=== PATIENT | female | born 1975 | race Caucasian/White ===

== ENCOUNTER 2017-06-27 11:11 | Observation (INO) | payer BC ==
[2017-06-27] MEDS ORDERED: NORMAL SALINE 250 ML IV PRN ×2 (11:37)
--- NOTE | 2017-06-27 11:46 | ER Document Report ---
ED General - General Chief Complaint: Abnormal Lab Results Stated Complaint: COUGH Time Seen by Provider: 06/27/17 11:37 Mode of Arrival: Ambulatory Information source: Patient Notes: 42 yr old female who has had heavy vaginal bleeding for over 2 months , pt seen by obgyn started on provera, notes bleeding has improved, TRAVEL OUTSIDE OF THE [place] IN LAST 30 DAYS: No - HPI Onset: Other - 2 months duration Onset/Duration: Persistent Quality of pain: No pain Severity: Mild Pain Level: 1 Associated symptoms: Weakness Exacerbated by: Denies Relieved by: Denies Similar symptoms previously: Yes Recently seen / treated by doctor: Yes - Related Data Allergies/Adverse Reactions: No Known Allergies Allergy (Verified 06/27/17 11:12) Past Medical History - Social History Smoking Status: Never Smoker Cigarette use (# per day): No Chew tobacco use (# tins/day): No Smoking Education Provided: No Frequency of alcohol use: Social Drug Abuse: None Family History: Reviewed & Not Pertinent Patient has suicidal ideation: No Patient has homicidal ideation: No Neurological Medical History: Denies: Hx Cerebrovascular Accident, Hx Migraine, Hx Seizures Renal/ Medical History: Denies: Hx Peritoneal Dialysis Psychiatric Medical History: Denies: Hx Anxiety Past Surgical History: Reports: Hx Tubal Ligation Review of Systems - Review of Systems Notes: REVIEW OF SYSTEMS: CONSTITUTIONAL : Denies fever, chills, or sweats. Denies recent illness. EENT: Denies eye, ear, throat, or mouth pain or symptoms. Denies nasal or sinus congestion or discharge. Denies throat, tongue, or mouth swelling or difficulty swallowing. CARDIOVASCULAR: Denies chest pain. Denies palpitations or racing or irregular heart beat. Denies ankle edema. RESPIRATORY: Denies cough, cold, or chest congestion. Denies shortness of breath, difficulty breathing, or wheezing. GASTROINTESTINAL: Denies abdominal pain or distention. Denies nausea, vomiting , or diarrhea. Denies blood in vomitus, stools, or per rectum. Denies black, tarry stools. Denies constipation. GENITOURINARY: Denies difficulty urinating, painful urination, burning, frequency, blood in urine, or discharge. FEMALE GENITOURINARY: admits ot vaginal bleeding MUSCULOSKELETAL: Denies back or neck pain or stiffness. Denies joint pain or swelling. SKIN: Denies rash, lesions or sores. HEMATOLOGIC : Denies easy bruising or bleeding. LYMPHATIC: Denies swollen, enlarged glands. NEUROLOGICAL: Denies confusion or altered mental status. Denies passing out or loss of consciousness. Denies dizziness or lightheadedness. Denies headache. Denies weakness or paralysis or loss of use of either side. Denies problems with gait or speech. Denies sensory loss, numbness, or tingling. Denies seizures. PSYCHIATRIC: Denies anxiety or stress. Denies depression, suicidal ideation, or homicidal ideation. ALL OTHER SYSTEMS REVIEWED AND NEGATIVE. PHYSICAL EXAMINATION: GENERAL: Well-appearing, well-nourished and in no acute distress. HEAD: Atraumatic, normocephalic. EYES: Pupils equal round and reactive to light, extraocular movements intact, conjunctiva are normal. ENT: Nares patent, oropharynx clear without exudates. Moist mucous membranes. NECK: Normal range of motion, supple without lymphadenopathy LUNGS: Breath sounds clear to auscultation bilaterally and equal. No wheezes rales or rhonchi. HEART: Regular rate and rhythm without murmurs ABDOMEN: Soft, nontender, nondistended abdomen. No guarding, no rebound. No masses appreciated. Female : deferred Musculoskeletal: Normal range of motion, no pitting or edema. No cyanosis. NEUROLOGICAL: Cranial nerves grossly intact. Normal speech, normal gait. Normal sensory, motor exams PSYCH: Normal mood, normal affect. SKIN: Warm, Dry, normal turgor, no rashes or lesions noted. Dictation was performed using [employer] voice recognition software Physical Exam - Vital signs Vitals: Temp Pulse Resp BP Pulse Ox 98.7 F 104 H 18 142/84 H 100 06/27/17 11:17 06/27/17 11:17 06/27/17 11:17 06/27/17 11:17 06/27/17 11:17 Course - Re-evaluation Re-evalutation: 06/27/17 11:[address] Nash, patient will require more than 2 units of transfusion if her hemoglobin is 5 as noted in the office, she will admit to her service - Vital Signs Vital signs: Temp Pulse Resp BP Pulse Ox 98.7 F 104 H 18 142/84 H 100 06/27/17 11:17 06/27/17 11:17 06/27/17 11:17 06/27/17 11:17 06/27/17 11:17 - Laboratory Result Diagrams: 06/27/17 11:39 06/27/17 11:39 Laboratory results interpreted by me: 06/27/17 06/27/17 11:39 11:39 WBC 11.0 H RBC 3.14 L Hgb 6.9 L Hct 22.1 L MCV 71 L MCH 22.1 L MCHC 31.3 L RDW 16.8 H Seg Neutrophils % 79.1 H Absolute Neutrophils 8.7 H Crossmatch See Detail Critical Care Note - Critical Care Note Total time excluding time spent on procedures (mins): 37 Comments: 37 minutes of critical care time spent in direct contact evaluating and reevaluating the patient, treating symptoms, reviewing labs and studies and speaking with family and consultants excluding any procedures Discharge - Discharge Clinical Impression: Vaginal bleeding Anemia Qualifiers: Iron deficiency anemia type: chronic blood loss Qualified Code(s): D50.0 - Iron deficiency anemia secondary to blood loss (chronic) Condition: Stable Disposition: ADMITTED OBSERVATION Admitting Provider: [facility] Admitted: Post
[2017-06-27 11:57] LABS: ABSOLUTE EOSINOPHILS # (AUTO) 0.1 10^3/uL (0.0-0.6); ABSOLUTE LYMPHOCYTES (AUTO) 1.6 10^3/uL (0.5-4.7); ABSOLUTE MONOCYTES (AUTO) 0.5 10^3/uL (0.1-1.4); ABSOLUTE NEUT (AUTO) 8.7 10^3/uL (1.7-8.2); BASOPHILS % (AUTO) 0.4 % (0-2); EOSINOPHILS % (AUTO) 1.2 % (0-6); HEMATOCRIT 22.1 % (36.0-47.0); LYMPHOCYTES % (AUTO) 14.9 % (13-45); MEAN CORPUSCULAR HEMOGLOBIN 22.1 pg (27.0-33.4); MEAN CORPUSCULAR HGB CONC 31.3 g/dL (32.0-36.0); MEAN CORPUSCULAR VOLUME 71 fl (80-97); MONOCYTES % (AUTO) 4.4 % (3-13); PLATELET COUNT 383 10^3/uL (150-450); RED BLOOD COUNT 3.14 10^6/uL (3.72-5.28); RED CELL DISTRIBUTION WIDTH 16.8 % (11.5-14.0); SEGMENTED NEUTROPHILS % (AUTO) 79.1 % (42-78); TOTAL CELLS COUNTED % (AUTO) 100 %
[2017-06-27 12:01] LABS: HEMOGLOBIN 6.9 g/dL (12.0-15.5)
[2017-06-27 12:23] LABS: ALANINE AMINOTRANSFERASE 29 U/L (9-52); ALKALINE PHOSPHATASE 64 U/L (38-126); ANION GAP 10 (5-19); ASPARTATE AMINO TRANSFERASE 21 U/L (14-36); BILIRUBIN,DIRECT 0.2 mg/dL (0.0-0.4); BILIRUBIN,TOTAL 0.2 mg/dL (0.2-1.3); BLOOD UREA NITROGEN 11 mg/dL (7-20); CALCIUM 9.4 mg/dL (8.4-10.2); CARBON DIOXIDE 25 mmol/L (22-30); CHLORIDE 104 mmol/L (98-107); GLUCOSE 101 mg/dL (75-110); POTASSIUM 4.4 mmol/L (3.6-5.0); SODIUM 138.9 mmol/L (137-145); TOTAL PROTEIN 6.8 g/dL (6.3-8.2)
[2017-06-27 13:28] LABS: ABSOLUTE RETICS # 0.113 10^6/uL (0.028-0.122); RETICULOCYTE COUNT (AUTO) 3.54 % (0.66-2.85)
[2017-06-27 14:26] LABS: FERRITIN 5.65 ng/mL (6.2-137.0)
[2017-06-27 14:27] LABS: IRON(TIBC) < 10.1 ug/dL (37-170)
[2017-06-28 01:58] LABS: HEMATOCRIT 24.5 % (36.0-47.0); MEAN CORPUSCULAR HEMOGLOBIN 23.4 pg (27.0-33.4); MEAN CORPUSCULAR HGB CONC 31.9 g/dL (32.0-36.0); MEAN CORPUSCULAR VOLUME 73 fl (80-97); PLATELET COUNT 288 10^3/uL (150-450); RED BLOOD COUNT 3.34 10^6/uL (3.72-5.28); RED CELL DISTRIBUTION WIDTH 19.3 % (11.5-14.0); WHITE BLOOD COUNT 11.4 10^3/uL (4.0-10.5)
[2017-06-28 02:02] LABS: HEMOGLOBIN 7.8 g/dL (12.0-15.5)
[2017-06-28] MEDS ORDERED: FUROSEMIDE INJ/PF 20 MG/2 ML SDV IV ONE (02:37)
[2017-06-28] MEDS ORDERED: NORMAL SALINE 250 ML IV PRN ×2 (02:38)
[2017-06-28] MEDS ORDERED: ACETAMINOPHEN 325 MG TABLET PO PRN (03:45)
[2017-06-28] MEDS ORDERED: ACETAMINOPHEN 325 MG TABLET ONE (06:33)
[2017-06-28] MEDS ORDERED: BISACODYL 10 MG SUPP.RECT PR PRN (09:49)
--- NOTE | 2017-06-28 09:49 | PDOC PROGRESS REPORT ---
Subjective Progress Note for:: 06/28/17 Subjective:: pt alert and stable c/o distension and no BM Reason For Visit: MENORRHAGIA/ANEMIA ACUTE Physical Exam - Physical Exam Vital Signs: Temp Pulse Resp BP Pulse Ox 98.5 F 83 17 133/78 H 100 06/28/17 08:58 06/28/17 08:58 06/28/17 08:58 06/28/17 08:58 06/28/17 08:58 Intake & Output 06/27/17 06/28/17 06/29/17 06:59 06:59 06:59 Intake Total 2400 Balance 2400 General appearance: PRESENT: no acute distress Respiratory exam: PRESENT: clear to auscultation ana GI/Abdominal exam: PRESENT: distended, soft Result Laboratory Results: 06/28/17 01:43 06/28/17 01:43 WBC 11.4 H RBC 3.34 L Hgb 7.8 L Hct 24.5 L MCV 73 L MCH 23.4 L MCHC 31.9 L RDW 19.3 H Plt Count 288 Assessment & Plan - Diagnosis (1) Abdominal pain Qualifiers: Abdominal location: generalized Qualified Code(s): R10.84 - Generalized abdominal pain Is this a current diagnosis for this admission?: Yes - Plan Summary Plan Summary: pt c/o distension and no BM wbc is 7.2 pt seen by surgery and no acute obstruction suspected. plan to continue antibiotics and stimulate bowel
[2017-06-28] MEDS ORDERED: MAGNESIUM CITRATE 296 ML BOTTLE PO ONE (11:30)
[2017-06-28] MEDS ORDERED: NA PHOS,M-B/NA PHOS,DI-BA (ADULT) 133 ML ENEMA PR ONE (11:30)
--- NOTE | 2017-06-28 11:41 | PDOC PROGRESS REPORT ---
Subjective Progress Note for:: 06/28/17 Subjective:: pt feels better Reason For Visit: MENORRHAGIA/ANEMIA ACUTE Physical Exam - Physical Exam Vital Signs: Temp Pulse Resp BP Pulse Ox 98.5 F 83 17 133/78 H 100 06/28/17 10:19 06/28/17 10:19 06/28/17 10:19 06/28/17 10:19 06/28/17 10:19 Intake & Output 06/27/17 06/28/17 06/29/17 06:59 06:59 06:59 Intake Total 2400 0 Balance 2400 0 General appearance: PRESENT: no acute distress Eye exam: PRESENT: conjunctiva pink Respiratory exam: PRESENT: clear to auscultation ana GI/Abdominal exam: PRESENT: soft Psychiatric exam: PRESENT: normal mood Result Laboratory Results: 06/28/17 01:43 06/28/17 01:43 WBC 11.4 H RBC 3.34 L Hgb 7.8 L Hct 24.5 L MCV 73 L MCH 23.4 L MCHC 31.9 L RDW 19.3 H Plt Count 288 Assessment & Plan - Diagnosis (1) Abdominal pain Qualifiers: Abdominal location: generalized Qualified Code(s): R10.84 - Generalized abdominal pain (2) Anemia Qualifiers: Iron deficiency anemia type: chronic blood loss Qualified Code(s): D50.0 - Iron deficiency anemia secondary to blood loss (chronic) - Plan Summary Plan Summary: d/c after transfusions complete. pt has appointment on the
--- NOTE | 2017-06-28 11:46 | PDOC DISCHARGE SUMMARY ---
General - Admit/Disc Date/PCP Admission Date/Primary Care Provider: 06/27/17 12:05 KRISH US MD Discharge Date: 06/28/17 - Discharge Diagnosis (3) Vaginal bleeding Is this a current diagnosis for this admission?: Yes - Additional Information Resuscitation Status: Full Code Discharge Activity: Activity As Tolerated, Balance Activity w/Rest Home Medications: No Home Medications 06/27/17 History of Present Illness History of Present Illness: LESTER AVALOS is a 42 year old female Physical Exam - Physical Exam Vital Signs: Temp Pulse Resp BP Pulse Ox 98.5 F 83 17 133/78 H 100 06/28/17 10:19 06/28/17 10:19 06/28/17 10:19 06/28/17 10:19 06/28/17 10:19 Intake & Output 06/27/17 06/28/17 06/29/17 06:59 06:59 06:59 Intake Total 2400 0 Balance 2400 0 General appearance: PRESENT: no acute distress Eye exam: PRESENT: conjunctiva pink Respiratory exam: PRESENT: clear to auscultation ana Cardiovascular exam: PRESENT: RRR Result Laboratory Results: 06/28/17 01:43 06/28/17 01:43 WBC 11.4 H RBC 3.34 L Hgb 7.8 L Hct 24.5 L MCV 73 L MCH 23.4 L MCHC 31.9 L RDW 19.3 H Plt Count 288 Plan Discharge Plan: pt has appointment on the and perscriptions for iron and vitamins pt to follow up then or prn Time Spent: Less than 30 Minutes
[2017-06-28 15:29] VITALS: BP 133/78
[2017-06-28 15:43] LABS: HEMATOCRIT 33.3 % (36.0-47.0); MEAN CORPUSCULAR VOLUME 76 fl (80-97); PLATELET COUNT 331 10^3/uL (150-450); RED CELL DISTRIBUTION WIDTH 19.8 % (11.5-14.0); WHITE BLOOD COUNT 11.8 10^3/uL (4.0-10.5)
== END 2017-06-28 16:00 | disposition home or self-care (01) ==
LOC: ER 11:11 → EH 12:05 → 2S 13:10
PROVIDERS: ADMIT Student in an Organized Health Care Education/Training Program; ATTEND Student in an Organized Health Care Education/Training Program
PROC: 30233N1 Transfusion of Nonautologous Red Blood Cells into Peripheral Vein, Percutaneous Approach (ICD-10-PCS; principal; 2017-06-27)
PROC: 30233N1 Transfusion of Nonautologous Red Blood Cells into Peripheral Vein, Percutaneous Approach (ICD-10-PCS; 2017-06-28)
DX: N93.9 Abnormal uterine and vaginal bleeding, unspecified (principal); R42 Dizziness and giddiness; D50.0 Iron deficiency anemia secondary to blood loss (chronic); R10.84 Generalized abdominal pain; N92.6 Irregular menstruation, unspecified; Z13.0 Encounter for screening for diseases of the blood and blood-forming organs and certain disorders involving the immune mechanism; Z83.2 Family history of diseases of the blood and blood-forming organs and certain disorders involving the immune mechanism
CPT/HCPCS: 99285; 86900; 86901; 36415 ×2; 36430; 86850; 82728; 83540; 83550; 85025; 85027; 85045; 80053; 86920; G0378 ×2; P9016 ×2; J1940; J7050